=== PATIENT | female | born 1990 | race American Indian/Alaskan Native ===

== ENCOUNTER 2021-05-30 07:45 | Outpatient (CLI) | payer MEDICAID ==
[2021-05-30] MEDS ORDERED: LACTATED RINGERS 1,000 ML IV ONE (08:14)
[2021-05-30 08:29] LABS: Bilirubin,Urine NEG (Negative); Blood,Urine NEG (Negative); Color,Urine Yellow (Yellow); Mucus,Urine FEW /HPF; Protein,Urine <15 mg/dL mg/dL (Negative); Urobilinogen,Urine < 2.0 mg/dL (<2.0)
[2021-05-30 08:32] VITALS: BP 118/69
== END 2021-05-30 09:37 | disposition home or self-care (01) ==
LOC: TRG 07:45 → APU 07:46 → TRG 09:37
DX: O26.893 Other specified pregnancy related conditions, third trimester (principal); R10.9 Unspecified abdominal pain; R39.15 Urgency of urination; R35.0 Frequency of micturition; M54.9 Dorsalgia, unspecified; Z3A.36 36 weeks gestation of pregnancy
CPT/HCPCS: 59025; 81001; 96360; J7120

== ENCOUNTER 2021-06-09 21:14 | Inpatient (IN) | payer MEDICAID ==
[2021-06-09] MEDS ORDERED: OXYTOCIN 10 UNIT/1 ML INJ IM PRN (22:52)
[2021-06-09] MEDS ORDERED: MINERAL OIL 30 ML ORAL LIQD PO PRN (22:52)
[2021-06-09] MEDS ORDERED: BUTORPHANOL 2 MG/1 ML INJ IV PRN (22:52)
[2021-06-09] MEDS ORDERED: fentaNYL 100 MCG/2 ML INJ IV PRN (22:52)
[2021-06-09] MEDS ORDERED: METHYLERGONOVINE MALEATE 0.2 MG/ML VIAL IM PRN (22:52)
[2021-06-09] MEDS ORDERED: ePHEDrine SULFATE 50 MG/1 ML INJ IV PRN (22:52)
[2021-06-09] MEDS ORDERED: LIDOCAINE (2%) 20 MG/1 ML VIAL 20 ML MDV INFILTRATI ONE (22:52)
[2021-06-09] MEDS ORDERED: LOPERAMIDE 2 MG CAP PO PRN (22:52)
[2021-06-09] MEDS ORDERED: AMPICILLIN/NS 2 GM/100 ML 2 GM/100 ML BAG IV ONE (22:52)
[2021-06-09] MEDS ORDERED: TERBUTALINE 1 MG/1 ML INJ SUB-Q PRN (22:52)
[2021-06-09] MEDS ORDERED: miSOPROStol 200 MCG TAB PR PRN (22:52)
[2021-06-09] MEDS ORDERED: CARBOPROST TROMETHAMINE 250 MCG/1 ML INJ IM PRN (22:52)
[2021-06-09] MEDS ORDERED: ACETAMINOPHEN 325 MG TAB PO PRN (22:52)
[2021-06-09] MEDS ORDERED: OXYTOCIN DRIP 30 UNITS/500 ML BAG IV SCH ×2 (23:00)
--- NOTE | 2021-06-09 23:05 | History and Physical Report ---
History of Present Illness Date of examination: 06/09/21 Date of admission: 06/09/2021 Chief complaint: Leaking of water from vagina History of present illness: 30 year old female presents to L&D at 37 4/7 weeks with complaint of leaking of fluid from vagina since 8:00 PM tonight. Patient reports she also has contractions. Patient denies vaginal bleeding. Patient reports active movement. Patient states she receives care at [facility] but records are not available. Patient's stated EDC is 06/27/2021. labs were drawn upon admission. 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 Past History Past Medical History: asthma (exercise induced asthma, no symptoms since childhood) Past Surgical History: no surgical history [facility] RE[facility]AT[facility] History: herpes (patient has been on Acyclovir suppression and denies lesions or prodromaly symptoms). denies: chlamydia, gonorrhea, hepatitis B, hepatitis C, HIV, syphilis, trichomonas Family/Genetic History: hypertension, cancer Social history: lives with family, full code. denies: smoking, alcohol abuse, prescription drug abuse, IV drug use - Obstetrical History Expected Date of Delivery: 06/27/21 Actual Gestation: 37 Week(s) 4 Day(s) : 3 Para: 0 Hx # Term Pregnancies: 0 Number of Pregnancies: 0 Spontaneous Abortions: 1 Induced : 1 Number of Living Children: 0 Medications and Allergies Allergies Allergy/AdvReac Type Severity Reaction Status Date / Time shellfish derived Allergy Anaphylaxis Verified 05/30/21 07:57 Home Medications Medication Instructions Recorded Confirmed Last Taken Type No.137/Iron/Folic Acd 1 tab PO DAILY 05/30/21 05/30/21 05/29/21 History [[facility] Tablet] Active Meds: Active Medications Acetaminophen (Acetaminophen 325 Mg Tab) 650 mg PO Q4H PRN PRN Reason: Pain, Mild (1-3) Butorphanol Tartrate (Butorphanol 2 Mg/1 Ml Inj) 1 mg IV Q2H PRN PRN Reason: Pain, Moderate(4-6) LABOR PAIN Carboprost Tromethamine (Carboprost Tromethamine 250 Mcg/1 Ml Inj) 250 mcg IM ONCE PRN PRN Reason: Uterine Bleeding Ephedrine Sulfate (Ephedrine Sulfate 50 Mg/1 Ml Inj) 10 mg IV Q2M PRN PRN Reason: Hypotension Fentanyl (Fentanyl 100 Mcg/2 Ml Inj) 100 mcg IV Q2H PRN PRN Reason: Pain,Severe (7-10) LABOR PAIN Oxytocin/Sodium Chloride (Pitocin/Ns 30 Unit/500ml) 30 units in 500 mls @ 2 mls/hr IV TITR WILLIAM; Protocol Lactated Ringer's (Lactated Ringers) 1,000 mls @ 125 mls/hr IV DIRECT WILLIAM Oxytocin/Sodium Chloride (Pitocin/Ns 30 Unit/500ml) 30 units in 500 mls @ 40 mls/hr IV TITR WILLIAM; Protocol Ampicillin Sodium (Ampicillin/Ns 2 Gm/100 Ml) 2 gm in 100 mls @ 100 mls/hr IV ONCE ONE; Protocol Stop: 06/09/21 23:51 Ampicillin Sodium (Ampicillin/Ns 1 Gm/50 Ml) 1 gm in 50 mls @ 100 mls/hr IV Q4H WILLIAM; Protocol Loperamide HCl (Loperamide 2 Mg Cap) 2 mg PO ONCE PRN PRN Reason: give with Hemabate Methylergonovine Maleate (Methylergonovine Maleate 0.2 Mg/Ml Vial) 0.2 mg IM ONCE PRN PRN Reason: Uterine Bleeding Mineral Oil (Mineral Oil 30 Ml Oral Liqd) 30 ml PO QHS PRN PRN Reason: Constipation Misoprostol (Misoprostol 200 Mcg Tab) 800 mcg NV ONCE PRN PRN Reason: Uterine Bleeding Oxytocin (Oxytocin 10 Unit/1 Ml Inj) 10 unit IM ONCE PRN PRN Reason: Uterine Bleeding Terbutaline Sulfate (Terbutaline 1 Mg/1 Ml Inj) 0.25 mg SUB-Q ONCE PRN PRN Reason: Hyperstimulation/Hypertonicity Review of Systems All systems: negative (leaking of fluid from vagina; contractions) - Vital Signs Vital signs: Vital Signs Pulse Pulse Ox 92 H 100 06/09/21 21:35 06/09/21 21:35 Temp Pulse Resp BP Pulse Ox 98.2 F 85 18 140/83 89 06/09/21 21:45 06/09/21 22:56 06/09/21 21:45 06/09/21 21:45 06/09/21 22:56 ROM plus positive for ROM - Physical Exam Abdomen: Positive: normal appearance, soft. Negative: distention, tenderness, guarding, rigidity Genitourinary (Female): Positive: normal external genitalia, normal perenium. Negative: perineal/vulvar lesions Vagina: Positive: other (clear fluid) Uterus: Positive: enlarged. Negative: tender Anus/Rectum: Positive: normal perianal skin Extremities: Negative: tenderness - Obstetrical FHR: category 2 FHR comments: FHR baseline 115 with moderate variability. Uterine Contraction Monitor Mode: External Cervical Dilatation: 5.5 Cervical Effacement Percentage: 100 station: -1 Uterine Contraction Pattern: Irregular Uterine Contraction Intensity: Moderate Results Abnormal lab results 06/09/21 Range/Units 22:08 Membranes Rupture Positive A (Negative) All other labs normal. Assessment and Plan A: at 37 weeks, 4 days gestation. Spontaneous rupture of membranes. Active labor. GBS unknown. No records available. HSV 2 positive, on suppression. Obesity. P: Admit. Continuous EFM. GBS prophylaxis. Request records. Obtain labs. Continue Valtrex for HSV suppression.
[2021-06-09] MEDS ORDERED: ONDANSETRON 4 MG/2 ML INJ IV PRN (23:36)
[2021-06-09] MEDS: LACTATED RINGERS 1,000 ML IV SCH (23:55)
[2021-06-10 00:23] LABS: Hematocrit 33.9 % (30.3-42.9); Hemoglobin 11.1 gm/dl (10.1-14.3); Mean Corpuscular HGB Conc 33 % (30-34); Mean Corpuscular Volume 83 fl (79-97); Platelet Count 400 K/mm3 (140-440); Red Blood Count 4.06 M/mm3 (3.65-5.03); Red Cell Distribution Width 14.7 % (13.2-15.2)
[2021-06-10 00:39] LABS: Alanine Aminotransferase 16 units/L (7-56); Albumin 3.8 g/dL (3.9-5); Blood Urea Nitrogen 6 mg/dL (7-17); Calcium 9.2 mg/dL (8.4-10.2); Hemolysis Index 1
[2021-06-10 00:43] LABS: BUN/Creatinine Ratio 10; Hepatitis C Virus Antibody Non-Reactive (NonReactive)
[2021-06-10] MEDS: LACTATED RINGERS 1,000 ML IV SCH (01:10)
[2021-06-10] MEDS ORDERED: NALOXONE 2 MG/2 ML INJ IV PRN (01:20)
[2021-06-10] MEDS ORDERED: ePHEDrine SULFATE 50 MG/1 ML INJ IV PRN (01:20)
[2021-06-10] MEDS ORDERED: ONDANSETRON 4 MG/2 ML INJ IV PRN ×2 (01:20→10:44)
[2021-06-10] MEDS ORDERED: LACTATED RINGERS 250 ML IV SOLN IV ONE (01:20)
[2021-06-10] MEDS ORDERED: NalbUPHINE 10 MG/1 ML INJ IV PRN (01:20)
[2021-06-10] MEDS ORDERED: diphenhydrAMINE 50 MG/ML VIAL IV PRN (01:20)
[2021-06-10 01:24] LABS: Uric Acid 5.1 mg/dL (3.5-7.6)
[2021-06-10] MEDS ORDERED: hydrALAZINE 20 MG/1 ML INJ ONE (01:35)
[2021-06-10] MEDS ORDERED: hydrALAZINE 20 MG/1 ML INJ IV PRN (01:35)
[2021-06-10] MEDS ORDERED: MAGNESIUM SULFATE 4 GM/100 ML BAG IV ONE (01:36)
[2021-06-10] MEDS ORDERED: fentaNYL-BUPIV 2 MCG/ML-0.125% 200 MCG/100 ML BAG EPIDURAL SCH (02:00)
[2021-06-10] MEDS ORDERED: MAGNESIUM SULFATE 40GM/1000ML 40 GM/1,000 ML BAG IV SCH (02:00)
--- NOTE | 2021-06-10 02:49 | Anesthesia Consultation ---
Anesthesia Consult and Med Hx Date of service: 06/10/21 - Airway Anesthetic Teeth Evaluation: Good ROM Head & Neck: Adequate Mental/Hyoid Distance: Adequate Mallampati Class: Class III Intubation Access Assessment: Possibly Difficult - Pulmonary Exam CTA: Yes - Cardiac Exam Cardiac Exam: RRR - Pre-Operative Health Status ASA Pre-Surgery Classification: ASA2 Proposed Anesthetic Plan: Epidural - Pulmonary Hx Smoking: No Hx Asthma: Yes (last attack about 5 years ago) COPD: No Hx Pneumonia: No Hx Sleep Apnea: No - Cardiovascular System Hx Hypertension: No Hx Heart Attack/AMI: No Hx Angina: No - Central Nervous System Hx Neuromuscular Disorder: Yes (states she has scoliosis) Hx Seizures: No Hx Psychiatric Problems: No - Gastrointestinal Hx Gastroesophageal Reflux Disease: No - Endocrine Hx Renal Disease: No Hx End Stage Renal Disease: No Hx Liver Disease: No Hx Insulin Dependent Diabetes: No Hx Non-Insulin Dependent Diabetes: No Hx Hypothyroidism: No Hx Hyperthyroidism: No - Hematic Hx Anemia: No Hx Sickle Cell Disease: No - Other Systems Hx Alcohol Use: (not since ) Hx Obesity: Yes
--- NOTE | 2021-06-10 02:51 | Progress Note ---
Labor Epidural - Labor Epidural Start Time: 02:35 Stop Time: 02:42 Performed by:: YINA CORADO Procedure: Patient is requesting epidural for labor and pain. H&P, labs were reviewed. Patient IDed, H&P reviewed, all questions and concerns were answered, and consent was signed. Timeout was performed at bedside. Patient in sitting position. Sterile prep and drape was performed. 3ml of 1% lidocaine skin wheal at L[3]- L [4]. 18-gauge SaaSAssurance epidural needle was advanced to loss of resistance with air technique 8cm. Negative CSF negative blood. Epidural catheter advanced to [12] centimeters. [negative] Aspiration [negative] test dose. Sterile dressing applied. Patient tolerated procedure.
[2021-06-10] MEDS ORDERED: AMPICILLIN/NS 1 GM/50 ML 1 GM/50 ML BAG IV SCH (03:00)
[2021-06-10 07:44] LABS: Amphetamine Screen,Urine Negative; Benzodiazepines Screen,Urine Negative; Cocaine Screen,Urine Negative; Methadone Screen,Urine Negative; Opiate Screen,Urine Negative
[2021-06-10 07:48] LABS: Bilirubin,Urine NEG (Negative); Blood,Urine LG (Negative); Color,Urine Yellow (Yellow); Mucus,Urine FEW /HPF; Urobilinogen,Urine < 2.0 mg/dL (<2.0)
[2021-06-10 08:14] LABS: Cannabinoid Screen,Urine Positive
[2021-06-10] MEDS ORDERED: LIDOCAINE (2%) 20 MG/1 ML VIAL 20 ML MDV INFILTRATI ONE (09:46)
--- NOTE | 2021-06-10 10:43 | Procedure Note ---
OB Delivery Note - Delivery Date of Delivery: 06/10/21 Surgeon: LONDON ROBERTS Estimated blood loss: other (250cc) - Vaginal Delivery presentation: vertex Delivery position: OA (with right arm presenting) Intrapartum events: prolonged active phase Delivery induction: none (PROM) Delivery augmentation: pitocin (after pt complete and allowed to labor down x2hrs) Delivery monitor: external FHT, external uterine Route of delivery: Delivery placenta: spontaneous Episiotomy: none Delivery laceration: 2nd degree Delivery repair: chromic Anesthesia: local, epidural Delivery comments: Protracted labor after 9cm dilatation and pt comfortable with epidural. pt allowed to labor down and then pitocin given then SAVD uncomplicated with compound presentation of right arm with head. Spontaneous delivery of placenta and 3vessel cord. Sustained perineal laceration 2nd degree and same repaired with 2-0 chromic running locked suture. Lidocaine 2% used for local anesthetic and epidural remained in progress. Baby with moderate size caput asynclitic and evaluated by peds. Mother and baby stable. - A at 1 minute: 8 at 5 minutes: 9 Infant Gender: Male (meconium noted after delivery (terminal), fluid previously clear; [id number])
[2021-06-10] MEDS ORDERED: diphenhydrAMINE 25 MG CAP PO PRN (10:44)
[2021-06-10] MEDS ORDERED: oxyCODONE /ACETAMINOPHEN 5-325MG TAB PO PRN (10:44)
[2021-06-10] MEDS ORDERED: PROMETHAZINE 25 MG TAB PO PRN (10:44)
[2021-06-10] MEDS ORDERED: LANOLIN/ZINC/DIMETHICONE (LANSINOH) 7 GM TP PRN (10:44)
[2021-06-10] MEDS ORDERED: WITCH HAZEL/ GLYCERIN PAD TP PRN (10:44)
[2021-06-10] MEDS ORDERED: PROMETHAZINE 25 MG RECT SUPP PR PRN (10:44)
[2021-06-10] MEDS: valACYclovir 500 MG TAB PO SCH ×2 (10:50→22:26)
[2021-06-10] MEDS ORDERED: OXYTOCIN DRIP 30 UNITS/500 ML BAG IV SCH (11:00)
[2021-06-10] MEDS: IBUPROFEN 600 MG TAB PO SCH ×2 (11:17→22:25)
[2021-06-10] MEDS: DOCUSATE SODIUM 100 MG CAP PO SCH (22:28)
[2021-06-11 01:10] LABS: Hematocrit 28.7 % (30.3-42.9); Hemoglobin 9.5 gm/dl (10.1-14.3)
[2021-06-11] MEDS: IBUPROFEN 600 MG TAB PO SCH ×4 (04:40→21:35)
[2021-06-11] MEDS: MAGNESIUM HYDROXIDE (MOM) ORAL LIQD UDC PO PRN (05:46)
[2021-06-11] MEDS: PRENATAL VIT27-FE FUMARATE-FOLIC ACID VIT TAB PO SCH (10:29)
[2021-06-11] MEDS: valACYclovir 500 MG TAB PO SCH ×2 (10:29→21:34)
[2021-06-11] MEDS: DOCUSATE SODIUM 100 MG CAP PO SCH ×2 (10:30→21:34)
[2021-06-11] MEDS: FERROUS SULFATE 325 MG TAB PO SCH ×2 (10:33→21:34)
--- NOTE | 2021-06-11 12:11 | Post Anesthesia Evaluation ---
- Post Anesthesia Evaluation Patient Participated: Yes Airway Patent: Yes Stable Respiratory Function: Yes Nausea/Vomiting: No Temp > 96.8F: Yes Pain Manageable: Yes Adequeate Hydration: Yes Anesthesia Complications: No Block Receding Appropriately: Yes Patient on Ventilator: No
--- NOTE | 2021-06-11 13:36 | Progress Note ---
Assessment and Plan A: day 1 S/P . Anemia. P: Continue oral iron supplementation. Anticipate discharge home tomorrow if patient continues to do well. Subjective - Subjective Date of service: 06/11/21 Principal diagnosis: day 1 S/P Interval history: Doing well. Patient reports: appetite normal, voiding normally, pain well controlled, flatus, ambulating normally, no dizzy ambulation, no nauseated Gideon: doing well Objective - Vital Signs Latest vital signs: Vital Signs Temp Pulse Resp BP Pulse Ox Pulse Ox 06/11/21 10:29 91 H 119/76 06/11/21 08:45 97 06/11/21 07:49 98.0 F 89 18 123/81 100 06/11/21 04:34 98.0 F 92 H 18 120/84 100 06/11/21 00:15 98.0 F 91 H 18 114/67 98 06/10/21 22:26 95 H 108/62 06/10/21 20:40 97 06/10/21 20:39 98.4 F 95 H 16 105/60 98 06/10/21 16:43 99.1 F 92 H 18 134/78 100 Intake and Output 06/10/21 06/11/21 06/11/21 23:59 07:59 15:59 Intake Total 200 Output Total 1200 Balance -1200 200 Intake: Oral 200 Output: Urine 1200 Void 1200 Other: Total, Intake Amount 200 Total, Output Amount 800 # Voids Void 1 1 - Exam Cardiovascular: Present: Regular rate Lungs: Present: Clear to auscultation Abdomen: Present: normal appearance, soft, normal bowel sounds. Absent: distention, tenderness, guarding, rigidity Uterus: Present: normal, firm, fundal height below umbilicus (FH at U-1). Absent: bogginess, tenderness Extremities: Present: normal. Absent: tenderness - Labs Labs: Abnormal lab results 06/11/21 Range/Units 00:03 Hgb 9.5 L (10.1-14.3) gm/dl Hct 28.7 L (30.3-42.9) %
[2021-06-12] MEDS: POTASSIUM CHLORIDE ER 20 MEQ TAB PO SCH ×2 (00:31→05:03)
[2021-06-12] MEDS: MAGNESIUM HYDROXIDE (MOM) ORAL LIQD UDC PO PRN (05:02)
[2021-06-12] MEDS ORDERED: POTASSIUM CHLORIDE ER 20 MEQ TAB PO ONE (10:33)
[2021-06-12] MEDS: PRENATAL VIT27-FE FUMARATE-FOLIC ACID VIT TAB PO SCH (10:38)
[2021-06-12] MEDS: DOCUSATE SODIUM 100 MG CAP PO SCH (10:38)
[2021-06-12] MEDS: valACYclovir 500 MG TAB PO SCH (10:38)
[2021-06-12] MEDS: FERROUS SULFATE 325 MG TAB PO SCH (10:39)
--- NOTE | 2021-06-12 12:52 | Progress Note ---
Assessment and Plan A: PP Day#2 Asymptomatic Anemia Hypokalemia P: Follow Routine Orders Continue FeSO4 as ordered Continue Potassium as ordered Dr. Garcia states repeat K+ must be drawn and resulted before D/C home Subjective - Subjective Date of service: 06/12/21 Principal diagnosis: day 1 S/P Patient reports: appetite normal, voiding normally, pain well controlled, flatus, ambulating normally [place]: doing well Objective - Vital Signs Latest vital signs: Vital Signs Temp Pulse Resp BP Pulse Ox Pulse Ox 06/12/21 10:55 122/77 06/12/21 08:31 98.1 F 81 19 122/77 98 06/12/21 01:05 98.4 F 91 H 20 122/78 99 06/11/21 21:36 83 115/71 06/11/21 21:35 12 06/11/21 20:00 98 06/11/21 16:28 98.0 F 83 18 120/79 100 Intake and Output 06/11/21 06/12/21 06/12/21 22:59 06:59 14:59 Intake Total 240 360 240 Balance 240 360 240 Intake: Oral 240 240 Intake, Free Water 360 Other: Total, Intake Amount 240 240 # Voids Void 1 2 1 - Exam Breasts: Present: normal Cardiovascular: Present: Regular rate Lungs: Present: Clear to auscultation, Normal air movement Abdomen: Present: normal appearance, soft, normal bowel sounds Uterus: Present: normal, firm, fundal height below umbilicus Extremities: Present: normal
--- NOTE | 2021-06-12 16:47 | Discharge Summary ---
Providers - Providers Date of Admission: 06/09/21 22:52 Date of discharge: 06/12/21 Attending physician: LONDON ROBERTS 06/11/21 19:01 Consult to Case Management [CONS] Routine Services Needed at Discharge: Regulator Operator Notified:: no Comment:: positive THC Primary care physician: LONDON ROBERTS Hospitalization Reason for admission: rupture of membranes Delivery: Episiotomy: none Laceration: 2nd degree Other procedures: none complications: none Discharge diagnosis: IUP at term delivered baby: male Condition at discharge: Good Disposition: 01 HOME / SELF CARE / HOMELESS Plan - Provider Discharge Summary Activity: routine, no sex for 6 weeks, no heavy lifting 4 weeks, no strenuous exercise Diet: routine Instructions: routine Additional instructions: [] Smoking cessation referral if applicable(refer to patient education folder for contact #) [] Refer to [facility] Call your doctor immediately for: * Fever > 100.5 * Heavy vaginal bleeding ( >1 pad per hour) * Severe persistent headache * Shortness of breath * Reddened, hot, painful area to leg or breast * Drainage or odor from incision. * Keep incision clean and dry at all times and follow doctor's instructions regarding bathing/showering - Follow up plan Follow up: LONDON ROBERTS MD [Primary Care Provider] - 6 Weeks
[2021-06-12 17:00] VITALS: BP 140/90
[2021-06-12] MEDS: IBUPROFEN 600 MG TAB PO SCH (17:58)
== END 2021-06-12 18:15 | disposition home or self-care (01) | DRG 774 ==
LOC: TRG 21:14 → APU 21:21 → TRG 22:52 → LD 22:52 → OB 06-10 11:47
PROVIDERS: ADMIT Obstetrics & Gynecology; ATTEND Obstetrics & Gynecology
PROC: 10E0XZZ Delivery of Products of Conception, External Approach (ICD-10-PCS; principal; 2021-06-10)
PROC: 0KQM0ZZ Repair Perineum Muscle, Open Approach (ICD-10-PCS; 2021-06-10)
PROC: 3E0R3BZ Introduction of Anesthetic Agent into Spinal Canal, Percutaneous Approach (ICD-10-PCS; 2021-06-10)
PROC: 00HU33Z Insertion of Infusion Device into Spinal Canal, Percutaneous Approach (ICD-10-PCS; 2021-06-10)
DX: O42.02 Full-term premature rupture of membranes, onset of labor within 24 hours of rupture (principal); O98.32 Other infections with a predominantly sexual mode of transmission complicating childbirth; Z37.0 Single live birth; A60.00 Herpesviral infection of urogenital system, unspecified; Z3A.37 37 weeks gestation of pregnancy; Z91.013 Allergy to seafood; O99.52 Diseases of the respiratory system complicating childbirth; J45.909 Unspecified asthma, uncomplicated; O99.214 Obesity complicating childbirth; E66.9 Obesity, unspecified; O70.1 Second degree perineal laceration during delivery; O90.81 Anemia of the puerperium; O99.285 Endocrine, nutritional and metabolic diseases complicating the puerperium; E87.6 Hypokalemia; Z20.822 Contact with and (suspected) exposure to COVID-19
CPT/HCPCS: 36415; 59025; 80053; 80307; 81001; 83615; 83735; 84112; 84132; 84550; 85014; 85018; 85027; 86592; 86706; 86762; 86803; 86850; 86900; 86901; 87086; 87806; G0378; J0290; J0360; J2405; J2590; J3105; J7120; U0003

== ENCOUNTER 2021-12-27 14:34 | Emergency (ER) | payer MEDICAID ==
[2021-12-27 16:03] LABS: Hematocrit 36.2 % (30.3-42.9); Hemoglobin 11.9 gm/dl (10.1-14.3); Mean Corpuscular HGB Conc 33 % (30-34); Mean Corpuscular Volume 83 fl (79-97); Platelet Count 445 K/mm3 (140-440); Red Blood Count 4.36 M/mm3 (3.65-5.03); Red Cell Distribution Width 14.4 % (13.2-15.2)
[2021-12-27 16:07] LABS: Alanine Aminotransferase 12 units/L (7-56); Blood Urea Nitrogen 8 mg/dL (7-17); Calcium 9.6 mg/dL (8.4-10.2); Hemolysis Index 6
[2021-12-27 16:09] LABS: BUN/Creatinine Ratio 16
[2021-12-27 16:26] LABS: Bilirubin,Urine NEG (Negative); Blood,Urine NEG (Negative); Calcium Oxalate Crystals,Urine 1+; Color,Urine Yellow (Yellow); Mucus,Urine FEW /HPF; Protein,Urine <15 mg/dL mg/dL (Negative)
[2021-12-27 16:55] VITALS: BP 124/86
--- NOTE | 2021-12-27 17:07 | Ultrasound Report ---
OBSTETRIC ULTRASOUND INDICATION: , abdominal pain COMPARISON: No prior relevant imaging studies are available for comparison. TECHNIQUE: Transabdominal imaging was performed. FINDINGS: Single viable intrauterine is identified. lie: Cephalic. Heart rate: 149 bpm. measurements are as follows: Biparietal diameter 2.4 cm, 14 weeks 1 day Head circumference 9.3 cm, 14 weeks 2 days Abdominal circumference 7.9 cm, 14 weeks 2 days Femur length 1.3 cm, 13 weeks 5 days Fetus is in the percentile for weight. No placental abnormalities are seen. CONCLUSION: No significant abnormality. Signer Name: Dwight Diana MD Signed: 12/27/2021 5:02 PM Workstation Name: [id number]
--- NOTE | 2021-12-27 17:26 | Emergency Department Report ---
ED Abdominal Pain HPI - General Chief Complaint: Abdominal Pain Stated Complaint: DIZZINESS/NO MOVEMENT 15 WEEKS Time Seen by Provider: 12/27/21 15:34 Source: patient Mode of arrival: Ambulatory Limitations: No Limitations - History of Present Illness Initial Comments: 31-year-old black female with past medical history of GERD, IBS, and eczema pre sents to the emergency department for evaluation of 2-week history of abdominal pain and decreased movement. Patient is G4, P1 at about 15 weeks gestation, and she states that she started having abdominal pain 2 weeks ago, she was seen by her MEAT HANGER about a week ago but has had persistent pain and no movement. She states that pain is intermittent and 9 out of 10. She denies fever, vaginal bleeding, dysuria, and vaginal discharge. MD Complaint: abdominal pain -: Gradual, week(s) Location: diffuse (To) Radiation: none Migration to: no migration Severity scale (0 -10): 9 Quality: aching Consistency: intermittent Associated Symptoms: nausea, vomiting. denies: diarrhea, fever, chills, dysuria, hematemesis, hematochezia, melena, hematuria, anorexia, syncope - Related Data Home Medications Medication Instructions Recorded Confirmed Last Taken No.137/Iron/Folic Acd 1 tab PO DAILY 05/30/21 12/27/21 05/29/21 [[facility] Tablet] Allergies Allergy/AdvReac Type Severity Reaction Status Date / Time shellfish derived Allergy Anaphylaxis Verified 12/27/21 16:58 ED Review of Systems ROS: Stated complaint: DIZZINESS/NO MOVEMENT 15 WEEKS Other details as noted in HPI Comment: All other systems reviewed and negative Constitutional: denies: chills, fever ENT: denies: congestion Respiratory: denies: cough, shortness of breath, SOB with exertion, SOB at rest, wheezing Cardiovascular: denies: chest pain, palpitations, dyspnea on exertion, orthopnea, edema, syncope, paroxysmal nocturnal dyspnea Gastrointestinal: abdominal pain, nausea, vomiting. denies: diarrhea, hematemesis, melena, hematochezia Genitourinary: denies: urgency, dysuria, frequency, hematuria, discharge Musculoskeletal: denies: back pain Skin: denies: rash, lesions Neurological: denies: headache, weakness ED Past Medical Hx - Past Medical History Hx Hypertension: No Hx Heart Attack/AMI: No Hx Congestive Heart Failure: No Hx Diabetes: No Hx Deep Vein Thrombosis: No Hx Liver Disease: No Hx Renal Disease: No Hx Sickle Cell Disease: No Hx Seizures: No Hx Asthma: Yes (last attack about 5 years ago) Hx COPD: No - Social History Smoking Status: Never Smoker Substance Use Type: None - Medications Home Medications: Home Medications Medication Instructions Recorded Confirmed Last Taken Type No.137/Iron/Folic Acd 1 tab PO DAILY 05/30/21 12/27/21 05/29/21 History [[facility] Tablet] ED Physical Exam - General Limitations: No Limitations General appearance: alert, in no apparent distress - Head Head exam: Present: atraumatic, normocephalic - Eye Eye exam: Present: normal appearance. Absent: conjunctival injection - Neck Neck exam: Present: normal inspection, full ROM. Absent: lymphadenopathy - Respiratory Respiratory exam: Present: normal lung sounds bilaterally. Absent: respiratory distress, wheezes, rales, rhonchi, stridor, chest wall tenderness - Cardiovascular Cardiovascular Exam: Present: regular rate, normal heart sounds - GI/Abdominal GI/Abdominal exam: Present: soft, normal bowel sounds. Absent: distended, tenderness, guarding, rebound, rigid - Extremities Exam Extremities exam: Present: normal inspection, normal capillary refill. Absent: tenderness, pedal edema, joint swelling, calf tenderness - Back Exam Back exam: Present: normal inspection. Absent: CVA tenderness (R), CVA tenderness (L), vertebral tenderness - Neurological Exam Neurological exam: Present: alert, oriented X3, normal gait - Psychiatric Psychiatric exam: Present: normal affect, normal mood - Skin Skin exam: Present: warm, dry, intact, normal color ED Course Vital Signs 12/27/21 12/27/21 14:54 16:53 Temperature 98.4 F Pulse Rate 93 H 76 Respiratory 18 Rate Blood Pressure 118/73 Blood Pressure 124/86 [Right] O2 Sat by Pulse 99 99 Oximetry ED Medical Decision Making - Lab Data Result diagrams: 12/27/21 15:45 12/27/21 15:45 - Radiology Data Radiology results: report reviewed ultrasound: FINDINGS: Single viable intrauterine is identified. lie: Cephalic. Heart rate: 149 bpm. measurements are as follows: Biparietal diameter 2.4 cm, 14 weeks 1 day Head circumference 9.3 cm, 14 weeks 2 days Abdominal circumference 7.9 cm, 14 weeks 2 days Femur length 1.3 cm, 13 weeks 5 days Fetus is in the percentile for weight. No placental abnormalities are seen. CONCLUSION: No significant abnormality. - Medical Decision Making 31-year-old black female with past medical history of GERD, IBS, and eczema presents to the emergency department for evaluation of 2-week history of abdominal pain and decreased movement. Patient is G4, P1 at about 15 weeks gestation, and she states that she started having abdominal pain 2 weeks ago, she was seen by her MEAT HANGER about a week ago but has had persistent pain and no movement. She states that pain is intermittent and 9 out of 10. She denies fever, vaginal bleeding, dysuria, and vaginal discharge. No gross abnormalities noted on exam or labs. Urine negative for UTI. ultrasound without any gross abnormalities and noted to have single viable IUP. Results reviewed with patient, she is advised to follow-up with OB for cont inued care. She is advised to return to the emergency department for any concerning symptoms. She verbalized understanding of and agreement with plan of care. Critical care attestation.: If time is entered above; I have spent that time in minutes in the direct care of this critically ill patient, excluding procedure time. ED Disposition Clinical Impression: Abdominal pain in Qualifiers: Trimester: second trimester Qualified Code(s): O26.892 - Other specified related conditions, second trimester Disposition: 01 HOME / SELF CARE / HOMELESS Is pt being admited?: No Does the pt Need Aspirin: No Condition: Stable Instructions: Round Ligament Pain, Abdominal Pain During , [id number], Abdominal Pain (ED) Additional Instructions: Follow-up with [facility]. Return to the emergency department for any concerning symptoms. Referrals: [facility] [Provider Group] - 3-5 Days Forms: Work/School Release Form(ED) Time of Disposition: 17:26
== END 2021-12-27 17:36 | disposition home or self-care (01) ==
LOC: ED 14:34
DX: O26.892 Other specified pregnancy related conditions, second trimester (principal); R10.9 Unspecified abdominal pain
CPT/HCPCS: 36415; 76801; 76805; 80053; 81001; 84702; 85027; 99284